=== PATIENT | female | born 1960 | race Caucasian/White ===

== ENCOUNTER 2018-12-16 12:11 | Emergency (ER) | payer OTHER ==
[2018-12-16 12:38] VITALS: BP 137/75
--- NOTE | 2018-12-16 13:24 | ED ---
Skin Complaint - HPI Summary HPI Summary: 58 yr old female with the complaint of rash to the right upper back. Onset about 4-5 days ago. The pain was first then rash. She had gotten a sunburn on back a few weeks ago. She reports the pain is sharp and also at times tingly all the way around the front of her chest in a band like distribution. No fever or chills. 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 - History of Current Complaint Chief Complaint: UCSkin Time Seen by Provider: 12/16/18 13:01 Stated Complaint: SKIN CONCERN Pain Intensity: 6 - Allergy/Home Medications Allergies/Adverse Reactions: Allergies Allergy/AdvReac Type Severity Reaction Status Date / Time amoxicillin Allergy Mild Rash Verified 12/16/18 12:32 PMH/Surg Hx/FS Hx/Imm Hx - Surgical History Surgery Procedure, Year, and Place: Hysterectomy 2016 Infectious Disease History: No Infectious Disease History: Denies: Traveled Outside the [place] in Last 30 Days - Family History Known Family History: Positive: None - Social History Occupation: Employed Full-time Alcohol Use: Rare Substance Use Type: Reports: None Smoking Status (MU): Never Smoked Tobacco Type: eCigarettes Review of Systems Constitutional: Negative Positive: Rash - right upper back All Other Systems Reviewed And Are Negative: Yes Physical Exam Triage Information Reviewed: Yes Vital Signs On Initial Exam: Initial Vitals Temp Pulse Resp BP Pulse Ox 97.6 F 71 16 137/75 98 12/16/18 12:33 12/16/18 12:33 12/16/18 12:33 12/16/18 12:33 12/16/18 12:33 Vital Signs Reviewed: Yes Appearance: Positive: Well-Appearing, No Pain Distress Skin: Positive: Other - blisters forming on red base about the level of T-4 on the right. Does not cross midline. ENT: Positive: Normal ENT inspection Neck: Positive: Nontender Respiratory/Lung Sounds: Positive: Clear to Auscultation, Breath Sounds Present Cardiovascular: Positive: RRR. Negative: Murmur Abdomen Description: Negative: Distended Musculoskeletal: Positive: Strength/ROM Intact Neurological: Positive: Sensory/Motor Intact, Alert, Oriented to Person Place, Time, CN Intact II-III, Speech Normal Psychiatric: Positive: Normal Diagnostics - Vital Signs Vital Signs Temp Pulse Resp BP Pulse Ox 12/16/18 12:33 97.6 F 71 16 137/75 98 - Laboratory Lab Statement: Any lab studies that have been ordered have been reviewed, and results considered in the medical decision making process. Course/Dx - Course Course Of Treatment: 58 yr old with shingles outbreak. Rx Valtrex. - Diagnoses Provider Diagnoses: Shingles, Hypertension Discharge - Sign-Out/Discharge Documenting (check all that apply): Patient Departure All imaging exams completed and their final reports reviewed: No Studies - Discharge Plan Condition: Good Disposition: HOME Prescriptions: ValACYclovir (*) [Valtrex 1 GM(*)] 1 gm PO TID #21 tab Patient Education Materials: Shingles (ED), Hypertension (ED) Forms: *Work Release Referrals: Paz Mendoza MD [Primary Care Provider] - 7 Days - Billing Disposition and Condition Condition: GOOD Disposition: Home
== END 2018-12-16 13:33 | disposition home or self-care (01) ==
LOC: UCCORT 12:11
DX: B02.9 Zoster without complications (principal); I10 Essential (primary) hypertension
CPT/HCPCS: 99202; G0463

== ENCOUNTER 2019-09-23 09:06 | Emergency (ER) | payer OTHER ==
--- OUTSIDE RECORDS SUMMARY | 2019-09-23 09:34 | XMS REPORT | Summary of Care ---
:1960 Author Organization [facility] Address [address] [address] Care Team Providers Name Role Phone Ho Gilbert MD Primary Care Provider Reason for Visit Reason Comments Sinus Problem x 1 month and getting worse. OTC-Advil Cold& +Sinus/Tylenol with temp relief. Nothing taken today. Ear Problem R ear. "itchy" Encounter Details Date Type Department Care Team Description 08/30/2019 Office Visit [facility] Aarti Plaza, Chronic sinusitis, [address] [place] [address] [address] [facility] (Primary Dx) [phone] [place] [address] [phone] Allergies Active Allergy Reactions Severity Noted Date Comments Amoxicillin Rash 05/02/2019 documented as of this encounter (statuses as of 08/30/2019) Medications Medication Sig Dispensed Refills Start Date End Date Status cefuroxime Take 1 Tab 20 Tab 0 08/30/2019 09/09/2019 Active (CEFTIN) 500 MG by mouth Oral TWICE DAILY TabIndications: for 10 days. Chronic sinusitis, unspecified location predniSONE Take 40mg 11 Tab 0 08/30/2019 Active (DELTASONE) 20 MG daily x 3 Oral days then TabIndications: 20mg daily x Chronic 3 days then sinusitis, 10mg daily x unspecified 4 days location fluticasone [place] 2 1 Bottle 0 08/30/2019 Active (FLONASE) 50 Sprays in MCG/ACT Nasal nose DAILY. SuspensionIndicat ions: Chronic sinusitis, unspecified location guaifenesin Take 1 Tab 20 Tab 0 08/30/2019 09/09/2019 Active (MUCINEX) 600 MG by mouth Oral TABLET SR 12 TWICE DAILY HRIndications: for 10 days. Chronic sinusitis, unspecified location fluticasone [place] 2 1 Bottle 0 05/02/2019 08/30/2019 Discontinued (FLONASE) 50 Sprays in (Therapy MCG/ACT Nasal nose DAILY. Completed) SuspensionIndicat ions: Acute maxillary sinusitis, recurrence not specified documented as of this encounter (statuses as of 08/30/2019) Active Problems Problem Noted Date Smoker 05/02/2019 documented as of this encounter (statuses as of 08/30/2019) Social History Tobacco Use Types Packs/Day Years Used Date Current Every Day Smoker 1 32 Smokeless Tobacco: Never Used Tobacco Cessation: Ready to Quit: No Alcohol Use Drinks/Week oz/Week Comments Yes rare Sex Assigned at Date Recorded Not on file Job Start Date Occupation Industry Not on file Not on file Not on file Travel History Travel Start Travel End No recent travel history available. documented as of this encounter Last Filed Vital Signs Vital Sign Reading Time Taken Comments Blood Pressure 146/78 08/30/2019 11:36 AM EST Pulse 98 08/30/2019 11:36 AM EST Temperature 36.8 08/30/2019 11:36 AM EST C (98.2 F) Respiratory Rate - - Oxygen Saturation 96% 08/30/2019 11:36 AM EST Inhaled Oxygen Concentration - - Weight 81.2 kg (179 lb) 08/30/2019 11:36 AM EST Height - - Body Mass Index 30.73 03/24/2019 1:07 PM EDT documented in this encounter Patient Instructions Patient InstructionsAarti Plaza PA-C - 08/30/2019 11:30 AM EST-Drink lots of fluids -Take antibiotics as prescribed, with food. Eat yogurt with live cultures ( Activia/Kefir) or take a probiotic while on the antibiotic. -Take prednisone as directed -Use saline spray or nasal rinse system (Nhan Med) use morning and night -Use Flonase as directed -Take Mucinex as directed with lots of fluids -Take Ibuprofen/Tylenol as needed for pain/fever -Use humidifier in the bedroom -Take over the counter decongestants (pseudophedrine) as needed for nasal congestion, or sinus pain/pressure -Call primary care provider if your symptoms worsen or if you aren't improving as anticipated. Patient Education Sinusitis in Adults The Basics Written by the doctors and editors at [facility] What is sinusitis?Sinusitis is a condition that can cause a stuffy nose, pain in the face, and discharge (mucus) from the nose. The sinuses are hollow areas in the bones of the face (figure 1). They have a thin lining that normally makes a small amount of mucus. When this lining gets irritated or infected, it swells and makes extra mucus. This causes symptoms. Sinusitis can occur when a person gets sick with a cold. The germs causing the cold can also infect the sinuses. Many times, a person feels like his or her cold is getting better. But then he or she gets sinusitis and begins to feel sick again. What are the symptoms of sinusitis?Common symptoms of sinusitis include: Stuffy or blocked nose Thick white, yellow, or green discharge from the nose Pain in the teeth Pain or pressure in the face This often feels worse when a person bends forward. People with sinusitis can also have other symptoms that include: Fever Cough Trouble smelling Ear pressure or fullness Headache Bad breath Feeling tired Most of the time, symptoms start to improve in 7 to 10 days. Should I see a doctor or nurse?See your doctor or nurse if your symptoms last more than 10 days, or if your symptoms get better at first but then get worse. Sometimes, sinusitis can lead to serious problems. See your doctor or nurse right away (do not wait 10 days) if you have: Fever higher than 102F (38.9C) Sudden and severe pain in the face and head Trouble seeing or seeing double Trouble thinking clearly Swelling or redness around one or both eyes A stiff neck Is there anything I can do on my own to feel better?Yes. To reduce your symptoms, you can: Take an rhil-axp-bwhrlhl pain reliever to reduce the pain Rinse your nose and sinuses with salt water a few times a day Ask your doctor or nurse about the best way to do this. Your doctor might also prescribe a steroid nose spray to reduce the swelling in your nose. (Steroid nose sprays do not contain the same steroids that some athletes take illegally.) How is sinusitis treated?Most of the time, sinusitis does not need to be treated with antibiotic medicines. This is because most sinusitis is caused by viruses not bacteria and antibiotics do not kill viruses. Many people get over sinus infections without antibiotics. Some people with sinusitis do need treatment with antibiotics. If your symptoms have not improved after 10 days, ask your doctor if you should take antibiotics. Your doctor might recommend that you wait 1 more week to see if your symptoms improve. But if you have symptoms such as a fever or a lot of pain , he or she might prescribe antibiotics. It is important to follow your doctor' s instructions about taking your antibiotics. What if my symptoms do not get better?If your symptoms do not get better, talk with your doctor or nurse. He or she might order tests to figure out why you still have symptoms. These can include: CT scan or other imaging tests Imaging tests create pictures of the inside of the body. A test to look inside the sinuses For this test, a doctor puts a thin tube with a cameraon the end into the nose and up into the sinuses. Some people get a lot of sinus infections or have symptoms that last at least 3 months. These peoplecan have a different type of sinusitis called "chronic sinusitis." Chronic sinusitis can be caused by different things. For example, some people have growths in their nose or sinuses that are called "polyps." Other people have allergies that cause their symptoms. Chronic sinusitis can be treated in different ways. If you have chronic sinusitis, talk with your doctor about which treatments are right for you. All topics are updated as new evidence becomes available and our peer review process is complete. This topic retrieved from [employer] on: May 31, 2019. Topic 09619 Version 14.0 Release: 27.4.5 - C27.318 [employer]. and/or its affiliates.All rights reserved. figure 1: Sinuses of the face Thisdrawing shows the sinuses of the face. Graphic 04751 Version 7.0 Consumer Information Use and Disclaimer This information is not specific medical advice and does not replace information you receive from your health care provider. This is only a brief summary of general information. It does NOT include allinformation about conditions, illnesses, injuries, tests, procedures, treatments, therapies, discharge instructions or life-style choices that may apply to you. You must talk with your health care provider for complete information about your health and treatment options. This information should not beused to decide whether or not to accept your health care provider's advice, instructions or recommendations. Only your health care provider has the knowledge and training to provide advice that is right for you.The use of [employer] content is governed by the [employer] Terms of Use. 2019 [employer]. All rights reserved. Copyright 2019[employer]. and/or its affiliates.All rights reserved. documented in this encounter Progress Notes Aarti Plaza PA-C - 08/30/2019 11:30 AM EST PATIENT: Kacie Trotter : 1960 DATE OF SERVICE: 08/30/2019 Chief Complaint Patient presents with Sinus Problem x 1 month and getting worse. OTC-Advil Cold& +Sinus/Tylenol with temp relief. Nothing taken today. Ear Problem R ear. "itchy" SUBJECTIVE: Kacie Trotter is a 59-y.o. female who presents complaining of nasal congestion, sinus pain/pressure, right ear pain/pressure, cough, postnasal drip for the past month getting progressively worse.She denies fever, chest pain, shortness of breath. Patient states she has a history of recurrent sinus infections. She has tried eala-fpp-cobgcba cold medications with little relief , last dose was yesterday. Patient reports smoking cigarettes. Past Medical History: Diagnosis Date Premenopausal patient possible perimenopausal Allergies Allergen Reactions Amoxicillin Rash ROS: Pertinent ROS items listed above OBJECTIVE: BP (!) 146/78 (BP Location: Left arm, Patient Position: Sitting) | Pulse 98 | Temp 98.2 F (36.8 C) (Tympanic) | Wt 179 lb (81.2 kg) | LMP 2010 | SpO2 96% | No | BMI 30.73 kg/m General: Alert and appears well. NAD. Head: NC/AT. Eyes: Conjunctiva non-injected. Ears: Bilateral TMs retracted with clear fluid/ air bubbles without erythema Nose: Turbinates with erythema/edema bilaterally. + discharge present. Maxillary sinuses tender. Throat: Mucous membranes moist.Tonsils and pharynx without erythema. +PND Neck: no lymphadenopathy Lungs: Clear to auscultation throughout. No wheezes, rales or rhonchi. Heart: RRR No results found for this visit on 08/30/19. ASSESSMENT/PLAN: ICD-9-CM ICD-10-CM 1. Chronic sinusitis, unspecified location 473.9 J32.9 cefuroxime (CEFTIN) 500 MG Oral Tab predniSONE (DELTASONE) 20 MG Oral Tab fluticasone (FLONASE) 50 MCG/ACT Nasal Suspension guaifenesin (MUCINEX) 600 MG Oral TABLET SR 12 HR Patient Instructions -Drink lots of fluids -Take antibiotics as prescribed, with food. Eat yogurt with live cultures ( Activia/Kefir) or take a probiotic while on the antibiotic. -Take prednisone as directed -Use saline spray or nasal rinse system (Nhan Med) use morning and night -Use Flonase as directed -Take Mucinex as directed with lots of fluids -Take Ibuprofen/Tylenol as needed for pain/fever -Use humidifier in the bedroom -Take over the counter decongestants (pseudophedrine) as needed for nasal congestion, or sinus pain/pressure -Call primary care provider if your symptoms worsen or if you aren't improving as anticipated. Patient Education Sinusitis in Adults The Basics Written by the doctors and editors at [facility] What is sinusitis?Sinusitis is a condition that can cause a stuffy nose, pain in the face, and discharge (mucus) from the nose. The sinuses are hollow areas in the bones of the face (figure 1). They have a thin lining that normally makes a small amount of mucus. When this lining gets irritated or infected, it swells and makes extra mucus. This causes symptoms. Sinusitis can occur when a person gets sick with a cold. The germs causing the cold can also infect the sinuses. Many times, a person feels like his or her cold is getting better. But then he or she gets sinusitis and begins to feel sick again. What are the symptoms of sinusitis?Common symptoms of sinusitis include: Stuffy or blocked nose Thick white, yellow, or green discharge from the nose Pain in the teeth Pain or pressure in the face This often feels worse when a person bends forward. People with sinusitis can also have other symptoms that include: Fever Cough Trouble smelling Ear pressure or fullness Headache Bad breath Feeling tired Most of the time, symptoms start to improve in 7 to 10 days. Should I see a doctor or nurse?See your doctor or nurse if your symptoms last more than 10 days, or if your symptoms get better at first but then get worse. Sometimes, sinusitis can lead to serious problems. See your doctor or nurse right away (do not wait 10 days) if you have: Fever higher than 102F (38.9C) Sudden and severe pain in the face and head Trouble seeing or seeing double Trouble thinking clearly Swelling or redness around one or both eyes A stiff neck Is there anything I can do on my own to feel better?Yes. To reduce your symptoms, you can: Take an zvhf-nji-qbemslb pain reliever to reduce the pain Rinse your nose and sinuses with salt water a few times a day Ask your doctor or nurse about the best way to do this. Your doctor might also prescribe a steroid nose spray to reduce the swelling in your nose. (Steroid nose sprays do not contain the same steroids that some athletes take illegally.) How is sinusitis treated?Most of the time, sinusitis does not need to be treated with antibiotic medicines. This is because most sinusitis is caused by viruses not bacteria and antibiotics do not kill viruses. Many people get over sinus infections without antibiotics. Some people with sinusitis do need treatment with antibiotics. If your symptoms have not improved after 10 days, ask your doctor if you should take antibiotics. Your doctor might recommend that you wait 1 more week to see if your symptoms improve. But if you have symptoms such as a fever or a lot of pain , he or she might prescribe antibiotics. It is important to follow your doctor' s instructions about taking your antibiotics. What if my symptoms do not get better?If your symptoms do not get better, talk with your doctor or nurse. He or she might order tests to figure out why you still have symptoms. These can include: CT scan or other imaging tests Imaging tests create pictures of the inside of the body. A test to look inside the sinuses For this test, a doctor puts a thin tube with a cameraon the end into the nose and up into the sinuses. Some people get a lot of sinus infections or have symptoms that last at least 3 months. These peoplecan have a different type of sinusitis called "chronic sinusitis." Chronic sinusitis can be caused by different things. For example, some people have growths in their nose or sinuses that are called "polyps." Other people have allergies that cause their symptoms. Chronic sinusitis can be treated in different ways. If you have chronic sinusitis, talk with your doctor about which treatments are right for you. All topics are updated as new evidence becomes available and our peer review process is complete. This topic retrieved from [employer] on: May 31, 2019. Topic 12989 Version 14.0 Release: 27.4.5 - C27.318 [employer] and/or its affiliates.All rights reserved. figure 1: Sinuses of the face Thisdrawing shows the sinuses of the face. Graphic 54871 Version 7.0 Consumer Information Use and Disclaimer This information is not specific medical advice and does not replace information you receive from your health care provider. This is only a brief summary of general information. It does NOT include allinformation about conditions, illnesses, injuries, tests, procedures, treatments, therapies, discharge instructions or life-style choices that may apply to you. You must talk with your health care provider for complete information about your health and treatment options. This information should not beused to decide whether or not to accept your health care provider's advice, instructions or recommendations. Only your health care provider has the knowledge and training to provide advice that is right for you.The use of [employer] content is governed by the [employer] Terms of Use. 2019 [employer]. All rights reserved. Copyright [employer]. and/or its affiliates.All rights reserved. Aarti Plaza PA-C 08/30/2019 11:58 documented in this encounter Plan of Treatment Health Maintenance Due Date Last Done Comments PNEUMOCOCCAL 0-64 YRS (1 of 1 - 1966 PPSV23) DTaP/Tdap/Td Vaccines (1 - Tdap) 1971 DIABETES SCREENING 1978 LIPID DISORDER SCREENING 1978 Colonoscopy 2010 ZOSTER IMMUNIZATION SERIES ( of 2010 2) MAMMOGRAM (SCREENING) 03/03/2012 03/03/2011 PAP SMEAR 03/03/2014 03/03/2011 LUNG CANCER SCREENING 2015 INFLUENZA VACCINE (#1) 2019 DEPRESSION SCREENING 03/24/2020 03/24/2019 HEPATITIS A IMMUNIZATION SERIES Aged Out No longer eligible based on patient's age to complete this topic HPV IMMUNIZATION SERIES Aged Out No longer eligible based on patient's age to complete this topic MENINGOCOCCAL VACCINE IMM Aged Out No longer eligible based on patient's age to complete this topic documented as of this encounter Results Not on filedocumented in this encounter Visit Diagnoses Diagnosis Chronic sinusitis, unspecified location documented in this encounter Insurance Payer Benefit Plan / Subscriber ID Effective Dates Phone Address Type Group LIFETIME LIFETIME BENEFIT xxxxxxxxxxxx Effective for [employer] ([place]) [place] [address] documented as of this encounter
[2019-09-23 09:48] VITALS: BP 147/79
--- NOTE | 2019-09-23 10:22 | UC ---
Throat Pain/Nasal Paxton HPI - HPI Summary HPI Summary: Pt presents with c/o cough, nasal congestion, sinus pressure and pain X 4 weeks. Pt was given cefdinir ~ 4 weeks ago, some improvement of Sx, now has had ST, maxilalry sinus pressure and pain X 2 days. - History of Current Complaint Chief Complaint: UCRespiratory Stated Complaint: SINUS Time Seen by Provider: 09/23/19 10:21 Hx Obtained From: Patient ?: No Onset/Duration: Gradual Onset, Lasting Weeks, Still Present, Worse Since - onset Severity: Severe Pain Intensity: 8 Associated Signs & Symptoms: Positive: Hoarseness, Sinus Discomfort, Other - ST , Cough - Epiglottits Risk Factors Epiglottis Risk Factors: Negative - Allergies/Home Medications Allergies/Adverse Reactions: Allergies Allergy/AdvReac Type Severity Reaction Status Date / Time amoxicillin Allergy Mild Rash Verified 09/23/19 09:51 Home Medications: Home Medications Azithromycin TAB* [Zithromax TAB (Z-JONATHON) 250 mg #6 tabs] 2 tab PO .TODAY, THEN 1 DAILY #1 jonathon 09/23/19 [Rx] Cetirizine* [ZyrTEC 10 MG TAB*] 10 mg PO DAILY #20 tab 09/23/19 [Rx] Fluconazole 150 MG TAB* [Diflucan 150 MG TAB*] 150 mg PO ONCE #2 tablet [Rx] Oxymetazoline 0.05% NASAL SPR* [Afrin 0.05% NASAL SPRAY*] 1 spray NASAL Q12H 3 Days #1 btl 09/23/19 [Rx] guaiFENesin ER TAB [Mucinex*] 600 mg PO DAILY PRN 09/23/19 [History Confirmed ] PMH/Surg Hx/FS Hx/Imm Hx Previously Healthy: Yes - Surgical History Surgical History: Yes Surgery Procedure, Year, and Place: Hysterectomy 2016, tonsils, adenoids - Family History Known Family History: Positive: Cardiac Disease - Social History Lives: With Family Alcohol Use: Rare Substance Use Type: None Smoking Status (MU): Current Some Day Smoker Type: eCigarettes Have You Smoked in the Last Year: No - Immunization History Hx Tetanus, Diphtheria Vaccination: Yes Vaccination Up to Date: Yes Review of Systems All Other Systems Reviewed And Are Negative: Yes Constitutional: Positive: Fatigue Skin: Positive: Negative Eyes: Positive: Negative ENT: Positive: Sinus Congestion, Sinus Pain/Tenderness Respiratory: Positive: Cough Cardiovascular: Positive: Negative Gastrointestinal: Positive: Negative Genitourinary: Positive: Negative Motor: Positive: Negative Neurovascular: Positive: Negative Musculoskeletal: Positive: Myalgia Neurological/Mental Status: Positive: Headache Psychological: Positive: Negative Is Patient Immunocompromised?: No Physical Exam Triage Information Reviewed: Yes Appearance: Ill-Appearing Vital Signs: Initial Vital Signs Temp 97.8 F 09/23/19 09:39 Pulse 86 09/23/19 09:39 Resp 24 09/23/19 09:39 BP 147/79 09/23/19 09:39 Pulse Ox 98 09/23/19 09:39 Vital Signs Reviewed: Yes Eye Exam: Normal ENT: Positive: Nasal congestion, Sinus tenderness Dental Exam: Normal Neck exam: Normal Respiratory Exam: Normal Cardiovascular Exam: Normal Musculoskeletal Exam: Normal Neurological Exam: Normal Psychological Exam: Normal Skin Exam: Normal Throat Pain/Nasal Course/Dx - Differential Dx/Diagnosis Differential Diagnosis/HQI/PQRI: Influenza, Sinusitis, URI Provider Diagnosis: Sinusitis Discharge ED - Sign-Out/Discharge Documenting (check all that apply): Patient Departure All imaging exams completed and their final reports reviewed: No Studies - Discharge Plan Condition: Stable Disposition: HOME Prescriptions: Azithromycin TAB* [Zithromax TAB (Z-JONATHON) 250 mg #6 tabs] 2 tab PO .TODAY, THEN 1 DAILY #1 jonathon Cetirizine* [ZyrTEC 10 MG TAB*] 10 mg PO DAILY #20 tab Fluconazole 150 MG TAB* [Diflucan 150 MG TAB*] 150 mg PO ONCE #2 tablet Oxymetazoline 0.05% NASAL SPR* [Afrin 0.05% NASAL SPRAY*] 1 spray NASAL Q12H 3 Days #1 btl Patient Education Materials: Sinusitis (ED) Referrals: Paz Mendoza MD [Primary Care Provider] - If Needed - Billing Disposition and Condition Condition: STABLE Disposition: Home
== END 2019-09-23 10:31 | disposition home or self-care (01) ==
LOC: UCCORT 09:06
DX: J32.9 Chronic sinusitis, unspecified (principal); R53.83 Other fatigue; R05 Cough; M79.10 Myalgia, unspecified site; R51 Headache; F17.290 Nicotine dependence, other tobacco product, uncomplicated; Z88.0 Allergy status to penicillin
CPT/HCPCS: 99212; G0463